=== PATIENT | female | born 1955 | race Two or more races ===

== ENCOUNTER 2017-10-20 15:06 | Inpatient (IN) | payer OTHER ==
[~2017-10-20] VITALS: Ht 157.5 cm; Wt 85.7 kg
[~2017-10-20 15:06] MED LIST: CRUTCH4 USE; CYCL10 PO; DICL25ER PO; DICL75ER PO; FISH1000 PO; Glucophage1000 MG PO; Hydrocodone-Ap1 EA23 PO; LATA.005SO BOTHEYES; LOSA25 PO; LOSA50 PO; METF500 PO; Multiple Vitam1 EAC1 PO; NAPR500 PO; NAPR500ERA PO; Percocet 5-3251 EACH PO; SIMV40 PO; Simvastatin20 MG PO; Suphedrine30 MG PO; TRAM50 PO; Ultram50 MG PO
[2017-10-31] MEDS ORDERED: ASPI81CH PO (09:23)
[2017-10-31] MEDS ORDERED: DICL75ER PO (09:24)
[2017-10-31] MEDS ORDERED: ATOR40TA PO (09:24)
[2017-10-31] MEDS ORDERED: GLIP2.5ER PO (09:25)
[2017-10-31] MEDS ORDERED: Xalatan2.5 ML BOTHEYES (09:32)
[2017-10-31] MEDS ORDERED: LOSA25 PO (09:34)
[2017-10-31] MEDS ORDERED: METF500 PO (09:34)
[2017-11-17] MEDS ORDERED: Pseudoephedrine30 MG PO (23:16)
[2017-11-17] MEDS ORDERED: Mucinex600 MG PO (23:16)
[2017-11-20] MEDS ORDERED: ASPI81CH PO (11:24)
[2017-11-20] MEDS ORDERED: Xalatan2.5 ML (11:26)
[2017-11-20] MEDS ORDERED: DICL75ER PO (11:27)
[2017-11-20] MEDS ORDERED: ASPI325EC PO (13:18)
[2017-11-20] MEDS ORDERED: ACET500 PO (13:18)
[2017-11-20] MEDS ORDERED: OXYC5 PO (13:19)
[2017-11-21 05:21] LABS: BASOPHILS ABSOLUTE AUTO 0.02 K/mm3 (0.00-0.23); BASOPHILS PERCENT AUTO 0 % (0-2); EOSINOPHILS PERCENT AUTO 0 % (0-6); Hematocrit 31.5 % (33.0-51.0); Hemoglobin 10.3 g/dL (11.5-16.0); IMMATURE GRAN ABSOLUTE AUTO 0.07 K/mm3 (0.00-0.10); IMMATURE GRAN PERCENT AUTO 1 % (0-1); LYMPHOCYTES ABSOLUTE AUTO 0.96 K/mm3 (0.84-5.20); LYMPHOCYTES PERCENT AUTO 7 % (21-46); MONOCYTES ABSOLUTE AUTO 0.41 K/mm3 (0.16-1.47); MONOCYTES PERCENT AUTO 3 % (4-13); Mean Corpuscular HGB 28.9 pg (26.0-34.0); Mean Corpuscular HGB Conc 32.7 g/dL (31.5-36.5); Mean Corpuscular Volume 89 fL (80-100); Mean Platelet Volume 10.1 fL (9.1-12.4); NEUTROPHILS ABSOLUTE AUTO 11.57 K/mm3 (1.96-9.15); NEUTROPHILS PERCENT AUTO 89 % (41-73); Platelet Count 226 K/mm3 (150-400); RDW Coefficient Variation 13.1 % (11.7-14.2); RDW Standard Deviation 42.6 fL (35.1-46.3); Red Blood Cell Count 3.56 M/mm3 (3.80-5.20); White Blood Cell Count 13.03 K/mm3 (4.00-11.30)
[2017-11-21 06:05] LABS: Anion Gap 12 mmol/L (6-16); Blood Urea Nitrogen 19 mg/dL (8-24); CO2, Blood 22 mmol/L (21-32); Calcium, Blood 8.1 mg/dL (8.5-10.1); Chloride, Blood 103 mmol/L (98-108); Creatinine, Blood 0.68 mg/dL (0.40-1.00); Glomerular Filtration Rate >60 (60-); Glucose, Blood 268 mg/dL (70-99); Magnesium, Blood 1.8 mg/dL (1.6-2.4); Potassium, Blood 4.3 mmol/L (3.5-5.5); Sodium, Blood 137 mmol/L (136-145)
== END 2017-11-21 16:42 | disposition home or self-care (01) | DRG 470 ==
LOC: SURS 11-20 11:03 → PRE IP 11-20 13:30 → SURS 11-20 15:22
PROVIDERS: Orthopaedic Surgery
PROC: 0SRC0J9 Replacement of Right Knee Joint with Synthetic Substitute, Cemented, Open Approach (ICD-10-PCS; principal; 2017-11-20 13:30)
DX: M17.11 Unilateral primary osteoarthritis, right knee (principal); E11.9 Type 2 diabetes mellitus without complications; E66.9 Obesity, unspecified; Z68.34 Body mass index [BMI] 34.0-34.9, adult; Z79.82 Long term (current) use of aspirin; Z79.84 Long term (current) use of oral hypoglycemic drugs; Z79.899 Other long term (current) drug therapy; Z88.8 Allergy status to other drugs, medicaments and biological substances; Z91.018 Allergy to other foods
CPT/HCPCS: 36415; 73560-RT; 80048; 82947; 83735; 85025; 88300; 97110; 97116; 97162; 97530; C1713; C1776; G8978; G8979; J0171; J0690; J0735; J1100; J1170; J1815; J1885; J2250; J2405; J2765; J2795; J3010; J7120

== ENCOUNTER 2017-11-08 09:01 | Day surgery (SDC) | payer OTHER ==
[~2017-11-08] VITALS: Ht 154.9 cm; Wt 91.6 kg
[~2017-11-08 09:01] MED LIST changes: +ASPI81CH PO; +ATOR40TA PO; +GLIP2.5ER PO; +Xalatan2.5 ML BOTHEYES
== END 2017-11-08 22:59 | disposition home or self-care (01) ==
LOC: ORSCMMR 09:01
PROVIDERS: Internal Medicine Gastroenterology
PROC: 0DBN8ZX Excision of Sigmoid Colon, Via Natural or Artificial Opening Endoscopic, Diagnostic (ICD-10-PCS; principal; 2017-11-08 10:00)
DX: Z12.11 Encounter for screening for malignant neoplasm of colon (principal); K63.5 Polyp of colon; K64.4 Residual hemorrhoidal skin tags; Z86.010 Personal history of colon polyps; Z80.0 Family history of malignant neoplasm of digestive organs; E11.9 Type 2 diabetes mellitus without complications; I10 Essential (primary) hypertension; E78.00 Pure hypercholesterolemia, unspecified; Z79.84 Long term (current) use of oral hypoglycemic drugs; Z79.899 Other long term (current) drug therapy
CPT/HCPCS: 82947; 88305; J7120

== ENCOUNTER 2017-11-17 20:49 | Emergency (ER) | payer OTHER ==
[~2017-11-17] VITALS: Ht 154.9 cm; Wt 83.9 kg
[2017-11-17] MEDS ORDERED: Mucinex600 MG PO (23:16)
[2017-11-17] MEDS ORDERED: Pseudoephedrine30 MG PO (23:16)
== END 2017-11-17 23:25 | disposition home or self-care (01) ==
LOC: ER 20:49
DX: J06.9 Acute upper respiratory infection, unspecified (principal); B34.9 Viral infection, unspecified; I10 Essential (primary) hypertension; E11.9 Type 2 diabetes mellitus without complications; E78.00 Pure hypercholesterolemia, unspecified; Z88.5 Allergy status to narcotic agent; Z88.8 Allergy status to other drugs, medicaments and biological substances; Z79.899 Other long term (current) drug therapy; Z79.84 Long term (current) use of oral hypoglycemic drugs; Z90.710 Acquired absence of both cervix and uterus
CPT/HCPCS: 87081; 87430; 99283

== ENCOUNTER 2018-02-15 15:04 | Emergency (ER) | payer OTHER ==
[~2018-02-15] VITALS: Ht 154.9 cm; Wt 86.2 kg
[~2018-02-15 15:04] MED LIST changes: +ACET500 PO; +ASPI325EC PO; +Mucinex600 MG PO; +OXYC5 PO; +Pseudoephedrine30 MG PO; +Xalatan2.5 ML
[2018-02-15] MEDS ORDERED: Aspir 8181 MG PO (15:28)
[2018-02-15 15:44] LABS: BASOPHILS ABSOLUTE AUTO 0.04 K/mm3 (0.00-0.23); BASOPHILS PERCENT AUTO 1 % (0-2); EOSINOPHILS ABSOLUTE AUTO 0.14 K/mm3 (0.00-0.68); EOSINOPHILS PERCENT AUTO 2 % (0-6); Hematocrit 39.9 % (33.0-51.0); IMMATURE GRAN ABSOLUTE AUTO 0.01 K/mm3 (0.00-0.10); IMMATURE GRAN PERCENT AUTO 0 % (0-1); LYMPHOCYTES PERCENT AUTO 32 % (21-46); MONOCYTES PERCENT AUTO 6 % (4-13); Mean Corpuscular HGB 28.4 pg (26.0-34.0); Mean Corpuscular HGB Conc 32.6 g/dL (31.5-36.5); Mean Corpuscular Volume 87 fL (80-100); Mean Platelet Volume 10.1 fL (9.1-12.4); NEUTROPHILS ABSOLUTE AUTO 5.13 K/mm3 (1.96-9.15); NEUTROPHILS PERCENT AUTO 60 % (41-73); Platelet Count 251 K/mm3 (150-400); RDW Standard Deviation 41.5 fL (35.1-46.3); Red Blood Cell Count 4.58 M/mm3 (3.80-5.20); White Blood Cell Count 8.52 K/mm3 (4.00-11.30)
[2018-02-15 15:58] LABS: Alanine Aminotransfer (ALT/SGP 27 U/L (12-78); Albumin, Blood 3.9 g/dL (3.4-5.0); Albumin/Globulin Ratio 1.1 (0.8-1.8); Alk Phos 134 U/L (50-136); Anion Gap 9 mmol/L (6-16); Aspartate Aminotrans (AST/SGOT 14 U/L (12-37); Bilirubin, Total 0.3 mg/dL (0.1-1.0); Blood Urea Nitrogen 14 mg/dL (8-24); Bun/Creatinine Ratio 25.1 (12.0-20.0); CO2, Blood 27 mmol/L (21-32); Calcium, Blood 8.6 mg/dL (8.5-10.1); Chloride, Blood 102 mmol/L (98-108); Creatinine, Blood 0.56 mg/dL (0.40-1.00); Globulin, Blood 3.7 g/dL (2.2-4.0); Glomerular Filtration Rate >60 (60-); Glucose, Blood 279 mg/dL (70-99); Potassium, Blood 3.9 mmol/L (3.5-5.5); Sodium, Blood 138 mmol/L (136-145); Total Protein, Blood 7.6 g/dL (6.4-8.2); Troponin I <0.015 ng/mL (0.000-0.040)
== END 2018-02-15 16:52 | disposition home or self-care (01) ==
LOC: ER 15:04
PROVIDERS: Nurse Practitioner Family
DX: R00.2 Palpitations (principal); Z88.8 Allergy status to other drugs, medicaments and biological substances; Z91.018 Allergy to other foods; Z79.899 Other long term (current) drug therapy; Z79.82 Long term (current) use of aspirin; Z79.84 Long term (current) use of oral hypoglycemic drugs; I10 Essential (primary) hypertension; E11.9 Type 2 diabetes mellitus without complications; E78.00 Pure hypercholesterolemia, unspecified
CPT/HCPCS: 36415; 71046; 80053; 84484; 85025; 93005; 93010

== ENCOUNTER 2018-07-10 12:34 | Emergency (ER) | payer OTHER ==
[~2018-07-10] VITALS: Ht 157.5 cm; Wt 88.5 kg
[~2018-07-10 12:34] MED LIST changes: +Aspir 8181 MG PO
== END 2018-07-10 15:22 | disposition home or self-care (01) ==
LOC: ER 12:34
DX: M79.89 Other specified soft tissue disorders (principal); Z88.8 Allergy status to other drugs, medicaments and biological substances; Z91.018 Allergy to other foods; Z79.899 Other long term (current) drug therapy; Z79.82 Long term (current) use of aspirin; Z79.84 Long term (current) use of oral hypoglycemic drugs; I10 Essential (primary) hypertension
CPT/HCPCS: 93971; 99283-25

== ENCOUNTER 2019-04-25 13:27 | Emergency (ER) | payer OTHER ==
[~2019-04-25] VITALS: Ht 157.5 cm; Wt 88.5 kg
[~2019-04-25 13:27] MED LIST changes: +ALBU90OI INH; +LOSARTAN POTAS100 MG PO; +Mobic15 MG PO; +TRAZ50 PO
[2019-04-25 14:32] LABS: BASOPHILS ABSOLUTE AUTO 0.06 K/mm3 (0.00-0.23); BASOPHILS PERCENT AUTO 1 % (0-2); EOSINOPHILS PERCENT AUTO 3 % (0-6); Hematocrit 43.9 % (33.0-51.0); Hemoglobin 14.6 g/dL (11.5-16.0); IMMATURE GRAN ABSOLUTE AUTO 0.01 K/mm3 (0.00-0.10); IMMATURE GRAN PERCENT AUTO 0 % (0-1); LYMPHOCYTES ABSOLUTE AUTO 2.48 K/mm3 (0.84-5.20); LYMPHOCYTES PERCENT AUTO 37 % (21-46); MONOCYTES ABSOLUTE AUTO 0.41 K/mm3 (0.16-1.47); MONOCYTES PERCENT AUTO 6 % (4-13); Mean Corpuscular HGB 28.7 pg (26.0-34.0); Mean Corpuscular HGB Conc 33.3 g/dL (31.5-36.5); Mean Corpuscular Volume 86 fL (80-100); NEUTROPHILS ABSOLUTE AUTO 3.61 K/mm3 (1.96-9.15); NEUTROPHILS PERCENT AUTO 53 % (41-73); Platelet Count 229 K/mm3 (150-400); RDW Coefficient Variation 13.2 % (11.7-14.2); RDW Standard Deviation 41.8 fL (35.1-46.3); Red Blood Cell Count 5.08 M/mm3 (3.80-5.20); White Blood Cell Count 6.77 K/mm3 (4.00-11.30)
[2019-04-25 14:56] LABS: Alanine Aminotransfer (ALT/SGP 27 U/L (12-78); Albumin, Blood 4.2 g/dL (3.4-5.0); Albumin/Globulin Ratio 1.2 (0.8-1.8); Alk Phos 138 U/L (50-136); Anion Gap 7 mmol/L (6-16); Aspartate Aminotrans (AST/SGOT 16 U/L (12-37); Bilirubin, Total 0.6 mg/dL (0.1-1.0); Blood Urea Nitrogen 11 mg/dL (8-24); Bun/Creatinine Ratio 19.9 (12.0-20.0); CO2, Blood 26 mmol/L (21-32); Calcium, Blood 9.3 mg/dL (8.5-10.1); Chloride, Blood 104 mmol/L (98-108); Creatinine, Blood 0.55 mg/dL (0.40-1.00); Globulin, Blood 3.6 g/dL (2.2-4.0); Glomerular Filtration Rate >60 (60-); Glucose, Blood 188 mg/dL (70-99); Potassium, Blood 4.1 mmol/L (3.5-5.5); Sodium, Blood 137 mmol/L (136-145); Total Protein, Blood 7.8 g/dL (6.4-8.2)
== END 2019-04-25 17:17 | disposition home or self-care (01) ==
LOC: ER 13:27
PROVIDERS: Physician Assistant
DX: R51 Headache (principal); Z88.8 Allergy status to other drugs, medicaments and biological substances; Z91.018 Allergy to other foods; Z79.899 Other long term (current) drug therapy; Z79.84 Long term (current) use of oral hypoglycemic drugs; I10 Essential (primary) hypertension
CPT/HCPCS: 36415; 70450; 80053; 85025; 96374; 99284-25; J1170

== ENCOUNTER 2019-07-18 08:29 | Day surgery (SDC) | payer OTHER ==
[~2019-07-18] VITALS: Ht 157.5 cm; Wt 90.3 kg
[2019-07-18] MEDS ORDERED: ALBU90OI (09:15)
== END 2019-07-18 11:48 | disposition home or self-care (01) ==
LOC: ORSCSDS 08:29
PROVIDERS: Orthopaedic Surgery
PROC: 0JBN0ZZ Excision of Right Lower Leg Subcutaneous Tissue and Fascia, Open Approach (ICD-10-PCS; principal; 2019-07-18 09:50)
DX: D17.23 Benign lipomatous neoplasm of skin and subcutaneous tissue of right leg (principal); I10 Essential (primary) hypertension; E11.9 Type 2 diabetes mellitus without complications; J45.909 Unspecified asthma, uncomplicated; E66.01 Morbid (severe) obesity due to excess calories; Z68.36 Body mass index [BMI] 36.0-36.9, adult; Z79.899 Other long term (current) drug therapy
CPT/HCPCS: 82947; J0171; J0690; J1885; J2250; J2405; J2704; J2765; J3010; J7120

== ENCOUNTER → 2020-01-21 | Outpatient (CLI) | payer OTHER ==
[~2020-01-21] MED LIST changes: +ALBU90OI
== END | disposition home or self-care (01) ==
LOC: LAB EV 13:05 → LAB SHORT 13:05
DX: J02.9 Acute pharyngitis, unspecified (principal)
CPT/HCPCS: 87081

== ENCOUNTER 2020-01-23 10:55 | Emergency (ER) | payer OTHER ==
[~2020-01-23] VITALS: Ht 157.5 cm; Wt 90.7 kg
[2020-01-23 11:52] LABS: BASOPHILS ABSOLUTE AUTO 0.05 K/mm3 (0.00-0.23); BASOPHILS PERCENT AUTO 1 % (0-2); EOSINOPHILS ABSOLUTE AUTO 0.21 K/mm3 (0.00-0.68); EOSINOPHILS PERCENT AUTO 3 % (0-6); Hematocrit 41.9 % (33.0-51.0); Hemoglobin 13.6 g/dL (11.5-16.0); IMMATURE GRAN ABSOLUTE AUTO 0.01 K/mm3 (0.00-0.10); IMMATURE GRAN PERCENT AUTO 0 % (0-1); LYMPHOCYTES ABSOLUTE AUTO 2.35 K/mm3 (0.84-5.20); LYMPHOCYTES PERCENT AUTO 32 % (21-46); MONOCYTES ABSOLUTE AUTO 0.55 K/mm3 (0.16-1.47); MONOCYTES PERCENT AUTO 8 % (4-13); Mean Corpuscular HGB 29.1 pg (26.0-34.0); Mean Corpuscular HGB Conc 32.5 g/dL (31.5-36.5); Mean Corpuscular Volume 90 fL (80-100); NEUTROPHILS ABSOLUTE AUTO 4.09 K/mm3 (1.96-9.15); NEUTROPHILS PERCENT AUTO 56 % (41-73); Platelet Count 268 K/mm3 (150-400); RDW Coefficient Variation 13.7 % (11.7-14.2); RDW Standard Deviation 44.9 fL (35.1-46.3); Red Blood Cell Count 4.68 M/mm3 (3.80-5.20); White Blood Cell Count 7.26 K/mm3 (4.00-11.30)
[2020-01-23 12:02] LABS: Anion Gap 7 mmol/L (6-16); Blood Urea Nitrogen 12 mg/dL (8-24); CO2, Blood 27 mmol/L (21-32); Calcium, Blood 9.2 mg/dL (8.5-10.1); Chloride, Blood 105 mmol/L (98-108); Creatinine, Blood 0.67 mg/dL (0.40-1.00); Glomerular Filtration Rate >60 (60-); Glucose, Blood 142 mg/dL (70-99); Potassium, Blood 4.3 mmol/L (3.5-5.5); Sodium, Blood 139 mmol/L (136-145); Troponin I <0.015 ng/mL (0.000-0.040)
== END 2020-01-23 13:55 | disposition home or self-care (01) ==
LOC: ER 10:55
PROVIDERS: Emergency Medicine
DX: J06.9 Acute upper respiratory infection, unspecified (principal); R07.89 Other chest pain; I10 Essential (primary) hypertension; Z79.899 Other long term (current) drug therapy
CPT/HCPCS: 36415; 71045; 80048; 84484; 85025; 87081; 87430; 93005; 93010; 96360; 96361; 99285-25; J7030

== ENCOUNTER 2020-05-24 17:13 | Emergency (ER) | payer OTHER ==
[~2020-05-24] VITALS: Ht 154.9 cm; Wt 86.2 kg
[~2020-05-24 17:13] MED LIST changes: -ALBU90OI
[2020-05-24 18:11] LABS: BASOPHILS ABSOLUTE AUTO 0.06 K/mm3 (0.00-0.23); BASOPHILS PERCENT AUTO 1 % (0-2); EOSINOPHILS PERCENT AUTO 2 % (0-6); Hematocrit 41.4 % (33.0-51.0); Hemoglobin 13.1 g/dL (11.5-16.0); IMMATURE GRAN ABSOLUTE AUTO 0.02 K/mm3 (0.00-0.10); IMMATURE GRAN PERCENT AUTO 0 % (0-1); LYMPHOCYTES PERCENT AUTO 29 % (21-46); MONOCYTES PERCENT AUTO 7 % (4-13); Mean Corpuscular HGB 28.8 pg (26.0-34.0); Mean Corpuscular HGB Conc 31.6 g/dL (31.5-36.5); Mean Corpuscular Volume 91 fL (80-100); NEUTROPHILS ABSOLUTE AUTO 5.98 K/mm3 (1.96-9.15); NEUTROPHILS PERCENT AUTO 61 % (41-73); Platelet Count 267 K/mm3 (150-400); RDW Coefficient Variation 13.6 % (11.7-14.2); RDW Standard Deviation 46.1 fL (35.1-46.3); Red Blood Cell Count 4.55 M/mm3 (3.80-5.20); White Blood Cell Count 9.86 K/mm3 (4.00-11.30)
[2020-05-24 18:27] LABS: Alanine Aminotransfer (ALT/SGP 26 U/L (12-78); Albumin/Globulin Ratio 1.1 (0.8-1.8); Alk Phos 108 U/L (50-136); Anion Gap 7 mmol/L (6-16); Aspartate Aminotrans (AST/SGOT 15 U/L (12-37); Bilirubin, Total 0.3 mg/dL (0.1-1.0); Blood Urea Nitrogen 22 mg/dL (8-24); CO2, Blood 26 mmol/L (21-32); Calcium, Blood 9.2 mg/dL (8.5-10.1); Chloride, Blood 109 mmol/L (98-108); Creatinine, Blood 0.85 mg/dL (0.40-1.00); Globulin, Blood 3.8 g/dL (2.2-4.0); Glomerular Filtration Rate >60 (60-); Glucose, Blood 133 mg/dL (70-99); Potassium, Blood 3.6 mmol/L (3.5-5.5); Sodium, Blood 142 mmol/L (136-145); Total Protein, Blood 7.8 g/dL (6.4-8.2)
[2020-05-24] MEDS ORDERED: TIZA4 PO (21:28)
[2020-06-15] MEDS ORDERED: PIOG30 PO (09:33)
[2020-06-15] MEDS ORDERED: DULO60 PO (09:33)
[2020-06-15] MEDS ORDERED: TRAM50 PO (09:34)
[2020-06-15] MEDS ORDERED: NORT25 PO (09:35)
[2020-06-15] MEDS ORDERED: AMLO5 PO (09:35)
[2020-06-15] MEDS ORDERED: FAMO40 PO (09:35)
[2020-06-15] MEDS ORDERED: VITAMIN D2 PO (09:36)
[2020-06-15] MEDS ORDERED: ROSU10TA PO (09:36)
== END 2020-05-24 23:31 | disposition home or self-care (01) ==
LOC: ER 17:13
PROVIDERS: Physician Assistant
DX: S09.90XA Unspecified injury of head, initial encounter (principal); H53.8 Other visual disturbances; Z88.8 Allergy status to other drugs, medicaments and biological substances; Z91.018 Allergy to other foods; Z79.84 Long term (current) use of oral hypoglycemic drugs; I10 Essential (primary) hypertension; W19.XXXA Unspecified fall, initial encounter
CPT/HCPCS: 36415; 70450; 80053; 85025; 93005; 93010; 99284-25

== ENCOUNTER 2020-06-29 09:07 | Day surgery (SDC) | payer OTHER ==
[~2020-06-29] VITALS: Ht 154.9 cm; Wt 94.4 kg
[~2020-06-29 09:07] MED LIST changes: +AMLO5 PO; +DULO60 PO; +FAMO40 PO; +NORT25 PO; +PIOG30 PO; +ROSU10TA PO; +TIZA4 PO; +VITAMIN D2 PO
--- NOTE | 2020-06-29 18:21 | NUR ---
SHIFT SUMMARY WAS ABLE TO WORK W/ THERAPY. EATING/DRINKING/VOIDING. PAIN REASONABLY MANAGED. WEANED OFF O2. BLOOD SUGAR HIGH; REQUIRING COVERAGE. PT WAS SURPRISED BY HIGH BLOOD SUGAR BUT THEN ASKED FOR A PUDDING AND ICE CREAM. WAS OFFERED A SUGAR FREE ONE AND DECLINED. THEN AGAIN ASKED FOR A REG PUDDING. WAS GIVEN AND EDUCATED ON HIGH SUGARS AND INCREASED RISK OF INFECTION.
[2020-06-30 04:22] LABS: BASOPHILS ABSOLUTE AUTO 0.02 K/mm3 (0.00-0.23); BASOPHILS PERCENT AUTO 0 % (0-2); EOSINOPHILS PERCENT AUTO 0 % (0-6); Hematocrit 32.3 % (33.0-51.0); Hemoglobin 10.4 g/dL (11.5-16.0); IMMATURE GRAN ABSOLUTE AUTO 0.06 K/mm3 (0.00-0.10); IMMATURE GRAN PERCENT AUTO 0 % (0-1); LYMPHOCYTES ABSOLUTE AUTO 1.24 K/mm3 (0.84-5.20); LYMPHOCYTES PERCENT AUTO 8 % (21-46); MONOCYTES ABSOLUTE AUTO 0.99 K/mm3 (0.16-1.47); MONOCYTES PERCENT AUTO 6 % (4-13); Mean Corpuscular HGB 29.7 pg (26.0-34.0); Mean Corpuscular HGB Conc 32.2 g/dL (31.5-36.5); Mean Corpuscular Volume 92 fL (80-100); Mean Platelet Volume 10.1 fL (9.1-12.4); NEUTROPHILS ABSOLUTE AUTO 13.67 K/mm3 (1.96-9.15); NEUTROPHILS PERCENT AUTO 86 % (41-73); Platelet Count 210 K/mm3 (150-400); RDW Coefficient Variation 13.9 % (11.7-14.2); RDW Standard Deviation 47.5 fL (35.1-46.3); White Blood Cell Count 15.98 K/mm3 (4.00-11.30)
--- NOTE | 2020-06-30 04:27 | NUR ---
SHIFT SUMMARY L TKA, A/O, VSS, AMBULATES WELL W/ 1 PERSON STANDBY ASSIST, TOLERATING PO, VOIDING WELL, PAIN CONTROLLED PER EMAR. USES CALL LIGHT APPROPRIATELY, CALL LIGHT & PERSONAL EFFECTS IN REACH. WILL REPORT TO ONCOMING DAY RN.
[2020-06-30 04:44] LABS: Anion Gap 6 mmol/L (6-16); Blood Urea Nitrogen 14 mg/dL (8-24); Bun/Creatinine Ratio 25.7 (12.0-20.0); CO2, Blood 27 mmol/L (21-32); Calcium, Blood 8.5 mg/dL (8.5-10.1); Chloride, Blood 105 mmol/L (98-108); Creatinine, Blood 0.54 mg/dL (0.40-1.00); Glomerular Filtration Rate >60 (60-); Glucose, Blood 153 mg/dL (70-99); Magnesium, Blood 2.2 mg/dL (1.6-2.4); Potassium, Blood 4.1 mmol/L (3.5-5.5); Sodium, Blood 138 mmol/L (136-145)
[2020-06-30] MEDS ORDERED: ACET500 PO (09:24)
[2020-06-30] MEDS ORDERED: ASPI81CH PO (09:28)
[2020-06-30] MEDS ORDERED: OXYC5 PO (09:29)
--- NOTE | 2020-06-30 11:00 | NUR ---
DISCHARGE CLEARED THERAPY, PAIN WELL MANAGED, EATING/DRINKING/VOIDING. SPOUSE AT SIDE. SCRIPT, DRSGS, AND POLAR PACK GIVEN. ESCORTED OUT VIA W/C.
--- NOTE | 2020-06-30 13:43 | NUR ---
06/30/20 1343 Lisset Elizabeth VERIFICATIONS: EDIT CHART.
== END 2020-06-30 10:54 | disposition home or self-care (01) ==
LOC: ORSCMMR 09:07 → ORD 10:30 → SURS 13:50 → ORSCMMR 06-30 10:54
PROVIDERS: Orthopaedic Surgery
PROC: 0SRD0J9 Replacement of Left Knee Joint with Synthetic Substitute, Cemented, Open Approach (ICD-10-PCS; principal; 2020-06-29 10:30)
PROC: 8E0Y0CZ Robotic Assisted Procedure of Lower Extremity, Open Approach (ICD-10-PCS; principal; 2020-06-29 10:30)
DX: M17.12 Unilateral primary osteoarthritis, left knee (principal); I10 Essential (primary) hypertension; E11.9 Type 2 diabetes mellitus without complications; J45.909 Unspecified asthma, uncomplicated; F32.9 Major depressive disorder, single episode, unspecified; E66.01 Morbid (severe) obesity due to excess calories; Z68.39 Body mass index [BMI] 39.0-39.9, adult; Z79.899 Other long term (current) drug therapy; Z79.84 Long term (current) use of oral hypoglycemic drugs
CPT/HCPCS: 27447; S2900; 36415; 73560-LT; 80048; 82947; 83735; 85025; 88300; 97110; 97116; 97162; A9270-GY; C1713; C1776; J0171; J0690; J0735; J1100; J1815; J1885; J2250; J2405; J2704; J2765; J2795; J3010; J7120

== ENCOUNTER → 2020-11-26 | Outpatient (CLI) | payer OTHER ==
[2020-11-26 15:49] LABS: BASOPHILS ABSOLUTE AUTO 0.06 K/mm3 (0.00-0.23); BASOPHILS PERCENT AUTO 1 % (0-2); EOSINOPHILS ABSOLUTE AUTO 0.26 K/mm3 (0.00-0.68); EOSINOPHILS PERCENT AUTO 3 % (0-6); Hematocrit 40.1 % (33.0-51.0); Hemoglobin 13.3 g/dL (11.5-16.0); IMMATURE GRAN ABSOLUTE AUTO 0.02 K/mm3 (0.00-0.10); IMMATURE GRAN PERCENT AUTO 0 % (0-1); LYMPHOCYTES ABSOLUTE AUTO 2.53 K/mm3 (0.84-5.20); LYMPHOCYTES PERCENT AUTO 31 % (21-46); MONOCYTES ABSOLUTE AUTO 0.55 K/mm3 (0.16-1.47); MONOCYTES PERCENT AUTO 7 % (4-13); Mean Corpuscular HGB 28.9 pg (26.0-34.0); Mean Corpuscular HGB Conc 33.2 g/dL (31.5-36.5); Mean Corpuscular Volume 87 fL (80-100); Mean Platelet Volume 9.8 fL (9.1-12.4); NEUTROPHILS ABSOLUTE AUTO 4.72 K/mm3 (1.96-9.15); NEUTROPHILS PERCENT AUTO 58 % (41-73); Platelet Count 276 K/mm3 (150-400); RDW Coefficient Variation 14.2 % (11.7-14.2); RDW Standard Deviation 44.8 fL (35.1-46.3); White Blood Cell Count 8.14 K/mm3 (4.00-11.30)
[2020-11-26 16:06] LABS: Alanine Aminotransfer (ALT/SGP 39 U/L (12-78); Albumin, Blood 3.9 g/dL (3.4-5.0); Alk Phos 119 U/L (40-126); Anion Gap 8 mmol/L (6-16); Aspartate Aminotrans (AST/SGOT 28 U/L (12-37); Bilirubin, Total 0.5 mg/dL (0.1-1.0); Blood Urea Nitrogen 10 mg/dL (8-24); Bun/Creatinine Ratio 10.3 (12.0-20.0); CO2, Blood 28 mmol/L (21-32); Calcium, Blood 9.3 mg/dL (8.5-10.1); Chloride, Blood 103 mmol/L (98-108); Creatinine, Blood 0.97 mg/dL (0.40-1.00); Globulin, Blood 3.9 g/dL (2.2-4.0); Glomerular Filtration Rate 58 (60-); Glucose, Blood 153 mg/dL (70-99); Potassium, Blood 3.6 mmol/L (3.5-5.5); Sodium, Blood 139 mmol/L (136-145); Thyroid Stimulating Hormone 1.374 uIU/mL (0.360-4.800); Total Protein, Blood 7.8 g/dL (6.4-8.2); Troponin I <0.017 ng/mL (0.000-0.040)
== END | disposition home or self-care (01) ==
LOC: LAB EV 15:43 → LAB SHORT 15:43
PROVIDERS: Physician Assistant
DX: R07.9 Chest pain, unspecified (principal)
CPT/HCPCS: 80053; 83880; 84443; 84484; 85025

== ENCOUNTER → 2021-05-16 | Outpatient (CLI) | payer OTHER ==
[2021-05-16 11:10] LABS: BASOPHILS ABSOLUTE AUTO 0.04 K/mm3 (0.00-0.23); BASOPHILS PERCENT AUTO 0 % (0-2); EOSINOPHILS ABSOLUTE AUTO 0.03 K/mm3 (0.00-0.68); EOSINOPHILS PERCENT AUTO 0 % (0-6); Hematocrit 41.3 % (33.0-51.0); Hemoglobin 13.9 g/dL (11.5-16.0); IMMATURE GRAN ABSOLUTE AUTO 0.03 K/mm3 (0.00-0.10); IMMATURE GRAN PERCENT AUTO 0 % (0-1); LYMPHOCYTES ABSOLUTE AUTO 0.96 K/mm3 (0.84-5.20); LYMPHOCYTES PERCENT AUTO 8 % (21-46); MONOCYTES ABSOLUTE AUTO 0.49 K/mm3 (0.16-1.47); MONOCYTES PERCENT AUTO 4 % (4-13); Mean Corpuscular HGB 28.8 pg (26.0-34.0); Mean Corpuscular HGB Conc 33.7 g/dL (31.5-36.5); Mean Corpuscular Volume 86 fL (80-100); Mean Platelet Volume 10.1 fL (9.1-12.4); NEUTROPHILS PERCENT AUTO 86 % (41-73); Platelet Count 232 K/mm3 (150-400); RDW Standard Deviation 40.2 fL (35.1-46.3); Red Blood Cell Count 4.82 M/mm3 (3.80-5.20); White Blood Cell Count 11.45 K/mm3 (4.00-11.30)
[2021-05-16 11:25] LABS: Albumin/Globulin Ratio 1.2 (0.8-1.8); Bilirubin, Total 0.6 mg/dL (0.1-1.0); Calcium, Blood 8.6 mg/dL (8.5-10.1); Creatinine, Blood 1.25 mg/dL (0.40-1.00); Globulin, Blood 3.4 g/dL (2.2-4.0); Potassium, Blood 4.4 mmol/L (3.5-5.5); Total Protein, Blood 7.4 g/dL (6.4-8.2)
== END | disposition home or self-care (01) ==
LOC: LAB 11:00 → LAB SHORT 11:00
PROVIDERS: Physician Assistant
DX: R10.9 Unspecified abdominal pain (principal)
CPT/HCPCS: 80053; 83690; 85025

== ENCOUNTER 2021-05-31 19:15 | Observation (INO) | payer OTHER ==
[~2021-05-31] VITALS: Ht 154.9 cm; Wt 97.2 kg
[~2021-05-31 19:15] MED LIST changes: -ALEN70 PO; -ERGO50000 PO; -METO50ER PO; -Norco 5-325 Ta1 EACH PO
[2021-05-31 20:41] LABS: BASOPHILS ABSOLUTE AUTO 0.09 K/mm3 (0.00-0.23); BASOPHILS PERCENT AUTO 1 % (0-2); EOSINOPHILS ABSOLUTE AUTO 0.48 K/mm3 (0.00-0.68); EOSINOPHILS PERCENT AUTO 5 % (0-6); Hematocrit 42.3 % (33.0-51.0); Hemoglobin 13.8 g/dL (11.5-16.0); IMMATURE GRAN ABSOLUTE AUTO 0.03 K/mm3 (0.00-0.10); IMMATURE GRAN PERCENT AUTO 0 % (0-1); LYMPHOCYTES ABSOLUTE AUTO 3.14 K/mm3 (0.84-5.20); LYMPHOCYTES PERCENT AUTO 31 % (21-46); MONOCYTES ABSOLUTE AUTO 0.63 K/mm3 (0.16-1.47); MONOCYTES PERCENT AUTO 6 % (4-13); Mean Corpuscular HGB 28.6 pg (26.0-34.0); Mean Corpuscular HGB Conc 32.6 g/dL (31.5-36.5); Mean Corpuscular Volume 88 fL (80-100); Mean Platelet Volume 9.9 fL (9.1-12.4); NEUTROPHILS ABSOLUTE AUTO 5.87 K/mm3 (1.96-9.15); NEUTROPHILS PERCENT AUTO 57 % (41-73); Platelet Count 283 K/mm3 (150-400); RDW Coefficient Variation 13.1 % (11.7-14.2); RDW Standard Deviation 41.8 fL (35.1-46.3); Red Blood Cell Count 4.83 M/mm3 (3.80-5.20); White Blood Cell Count 10.24 K/mm3 (4.00-11.30)
[2021-05-31 21:03] LABS: Alanine Aminotransfer (ALT/SGP 25 U/L (12-78); Alk Phos 125 U/L (50-136); Anion Gap 6 mmol/L (6-16); Aspartate Aminotrans (AST/SGOT 13 U/L (12-37); Bilirubin, Total 0.3 mg/dL (0.1-1.0); Blood Urea Nitrogen 19 mg/dL (8-24); Bun/Creatinine Ratio 25.1 (12.0-20.0); CO2, Blood 27 mmol/L (21-32); Calcium, Blood 9.7 mg/dL (8.5-10.1); Chloride, Blood 104 mmol/L (98-108); Creatinine, Blood 0.76 mg/dL (0.40-1.00); Globulin, Blood 4.2 g/dL (2.2-4.0); Glomerular Filtration Rate >60 (60-); Glucose, Blood 237 mg/dL (70-99); Potassium, Blood 4.5 mmol/L (3.5-5.5); Sodium, Blood 137 mmol/L (136-145); Total Protein, Blood 8.2 g/dL (6.4-8.2)
[2021-06-01] MEDS ORDERED: METO50ER PO ×2 (00:20)
[2021-06-01] MEDS ORDERED: LATA.005SO BOTHEYES ×2 (00:20)
[2021-06-01] MEDS ORDERED: ERGO50000 PO ×2 (00:21)
[2021-06-01] MEDS ORDERED: ALEN70 PO ×2 (00:21)
--- NOTE | 2021-06-01 02:56 | NUR ---
PT NEW ADMIT FROM ER FOR DELICIA. PT A/O, VSS. PT REP RUQ ABD PAIN W/NAUSEA, DENIES EMESIS. PT REP PAIN CHIP, REP IS NERVOUS TO TAKE MEDS R/T ALLERGIC REACTION IN ER. PER REPORT, PT BECAME ITCHY AND SHAKY AFTER SHE WAS GIVEN MORPHINE AND ZOFRAN IN ER. PT STATES SYMPTOMS RESOLVED AFTER BENADRYL GIVEN. PT ORIENTED TO ROOM/CALL LIGHT AND NPO STATUS. DR MORENO UPDATED.
[2021-06-01 03:37] LABS: SARS-Cov-2 (COVID-19) PCR, MMC NEGATIVE (NEGATIVE)
--- NOTE | 2021-06-01 05:42 | NUR ---
PT VSS SINCE ARRIVING TO FLOOR. PT REP PAIN AND NAUSEA CHIP. PT NPO SINCE ARRIVING TO FLOOR FOR PLAN FOR SURGERY TODAY.
--- NOTE | 2021-06-01 10:44 | NUR ---
THE PATIENT WAS BROUGHT TO D/S FOR HER PROCEDURE. Ambulatory in [facility] warming gown applied. Surgical site prepped with 2% Chlorhexidine cloth wipe. History, Chart, Medications and Allergies reviewed before start of procedure.Lungs clear T/O to Auscultation. Patient confirms NPO status and agrees with scheduled surgery. Pre-Op teaching done. Pt verbalizes understanding. Patient States Post-Procedure ride home has been arranged.
--- NOTE | 2021-06-01 19:28 | NUR ---
SHIFT SUMMARY PATIENT ALERT AND ORIENTED. WENT FOR CHOLECYSTECTOMY WITH DR PEDERSON THIS SHIFT. RETURNED TO ROOM IN AFTERNOON. LAP SITES C/D/I. TOLERATING CLEARS, VOIDING WELL. ROUTINE FLUIDS AND ABX RUNNING. AMBULATES IN ROOM WITH SBA. PAIN CONTROLLED WITH PO PAIN MEDS. REPORT GIVEN TO AGENT TICKETING GATE RN.
--- NOTE | 2021-06-02 06:07 | NUR ---
POD 1 S/P LAP DELICIA. PT VSS T/O NIGHT. INCISIONS CDI. PT CHIP REG PO, NO N/V, REP +FLATUS. PT REP SHE IS VOIDING URINE W/O DIFFICULTY. PAIN MGD W/1 NORCO W/REP RELIEF. NO ADVERSE REACTIONS NOTED/REPORTED FROM MEDS GIVEN. PT UP IN ROOM W/SBA, CHIP WELL.
[2021-06-02] MEDS ORDERED: Norco 5-325 Ta1 EACH PO ×2 (08:04)
--- NOTE | 2021-06-02 10:13 | NUR ---
DISCHARGE PT EATING, DRINKING, VOIDING, & PASSING GAS. PAIN WELL CONTROLLED. AMBULATING EASILY. SCRIPT SENT W/ PT. ESCORTED OUT VIA W/C.
--- NOTE | 2021-06-03 10:44 | NUR ---
06/03/21 1044 Lisset Elizabeth VERIFICATIONS: EDIT CHART.
== END 2021-06-02 10:05 | disposition home or self-care (01) ==
LOC: ER 19:15 → SURS 19:16 → ER 06-01 00:28 → SURS 06-01 00:28
PROVIDERS: Physician Assistant; Surgery; ADMIT Surgery
PROC: 0FT44ZZ Resection of Gallbladder, Percutaneous Endoscopic Approach (ICD-10-PCS; principal; 2021-06-01 10:30)
DX: K80.10 Calculus of gallbladder with chronic cholecystitis without obstruction (principal); I10 Essential (primary) hypertension; G43.909 Migraine, unspecified, not intractable, without status migrainosus; E78.5 Hyperlipidemia, unspecified; E11.9 Type 2 diabetes mellitus without complications; Z79.84 Long term (current) use of oral hypoglycemic drugs; Z88.6 Allergy status to analgesic agent; Z88.5 Allergy status to narcotic agent; Z91.018 Allergy to other foods; Z96.653 Presence of artificial knee joint, bilateral; Z79.82 Long term (current) use of aspirin; Z20.822 Contact with and (suspected) exposure to COVID-19
CPT/HCPCS: 36415; 80053; 82947; 85025; 88304; 93005; 93010; 96361; 96365; 96366; 96367; 96375; 99284-25; A9270; G0378; J0295; J1200; J1885; J2250; J2270; J2405; J2543; J2704; J3010; J7030; J7120; U0004

== ENCOUNTER → 2021-05-31 | Outpatient (CLI) | payer OTHER ==
[~2021-05-31] MED LIST changes: +ALEN70 PO; +ERGO50000 PO; +METO50ER PO; +Norco 5-325 Ta1 EACH PO
[2021-05-31 14:35] LABS: BASOPHILS ABSOLUTE AUTO 0.06 K/mm3 (0.00-0.23); BASOPHILS PERCENT AUTO 1 % (0-2); EOSINOPHILS PERCENT AUTO 5 % (0-6); Hematocrit 42.1 % (33.0-51.0); Hemoglobin 13.9 g/dL (11.5-16.0); IMMATURE GRAN ABSOLUTE AUTO 0.03 K/mm3 (0.00-0.10); IMMATURE GRAN PERCENT AUTO 0 % (0-1); LYMPHOCYTES PERCENT AUTO 30 % (21-46); MONOCYTES ABSOLUTE AUTO 0.52 K/mm3 (0.16-1.47); MONOCYTES PERCENT AUTO 6 % (4-13); Mean Corpuscular HGB 28.8 pg (26.0-34.0); Mean Corpuscular Volume 87 fL (80-100); Mean Platelet Volume 9.9 fL (9.1-12.4); NEUTROPHILS ABSOLUTE AUTO 5.08 K/mm3 (1.96-9.15); NEUTROPHILS PERCENT AUTO 59 % (41-73); Platelet Count 283 K/mm3 (150-400); RDW Coefficient Variation 13.1 % (11.7-14.2); RDW Standard Deviation 41.3 fL (35.1-46.3); Red Blood Cell Count 4.83 M/mm3 (3.80-5.20); White Blood Cell Count 8.69 K/mm3 (4.00-11.30)
[2021-05-31 14:44] LABS: Albumin, Blood 3.9 g/dL (3.4-5.0); Bilirubin, Total 0.4 mg/dL (0.1-1.0); Bun/Creatinine Ratio 15.3 (12.0-20.0); Calcium, Blood 9.2 mg/dL (8.5-10.1); Creatinine, Blood 0.98 mg/dL (0.40-1.00); Globulin, Blood 3.9 g/dL (2.2-4.0); Potassium, Blood 4.4 mmol/L (3.5-5.5); Total Protein, Blood 7.8 g/dL (6.4-8.2)
== END | disposition home or self-care (01) ==
LOC: LAB SHORT 14:29 → LAB 14:29
PROVIDERS: Physician Assistant Medical
DX: R10.12 Left upper quadrant pain (principal)
CPT/HCPCS: 80053; 83690; 85025

== ENCOUNTER → 2022-02-22 | Outpatient (CLI) | payer OTHER ==
[~2022-02-22] MED LIST changes: +ALEN70 PO; +ERGO50000 PO; +METO50ER PO; +Norco 5-325 Ta1 EACH PO
== END | disposition home or self-care (01) ==
LOC: LAB SHORT 14:40 → LAB 14:40
DX: R31.9 Hematuria, unspecified (principal)
CPT/HCPCS: 87086

== ENCOUNTER → 2022-02-25 | Outpatient (CLI) | payer OTHER ==
[2022-03-02 18:09] LABS: COLOR Orange (.); SIZE 10x6 mm (.); URIC ACID 100 % (.); WEIGHT 144 mg (.)
== END | disposition home or self-care (01) ==
LOC: LAB 15:01 → LAB SHORT 15:01
PROVIDERS: Hospitalist
DX: N20.0 Calculus of kidney (principal)
CPT/HCPCS: 82365

== ENCOUNTER 2022-10-13 12:58 | Day surgery (SDC) | payer OTHER ==
[~2022-10-13] VITALS: Ht 157.5 cm; Wt 98.3 kg
[2022-10-13] MEDS ORDERED: SERT25 PO (15:06)
--- NOTE | 2022-10-13 16:16 | NUR ---
10/13/221615 Jose Guadalupe Oliveira PT HAD ELEVATED BLOOD PRESSURES IN STEP DOWN. SHE WAS ADVISED TO RETURN TO TAKING HER BLOOD [place] DIRECTED BY HER PCP WHEN SHE GETS HOME AND TO MONITOR BLOOD PRESSURES CLOSELY. SHE WAS ADVISED TO CONSULT PCP NEVIN IF BLOOD PRESSURE DOES NOT RETURN TO NORMAL.
== END 2022-10-13 16:09 | disposition home or self-care (01) ==
LOC: ORSCSDS 12:58
PROVIDERS: Ophthalmology
PROC: 08DJ3ZZ Extraction of Right Lens, Percutaneous Approach (ICD-10-PCS; principal; 2022-10-13 14:30)
DX: H25.11 Age-related nuclear cataract, right eye (principal); I10 Essential (primary) hypertension; I25.10 Atherosclerotic heart disease of native coronary artery without angina pectoris; K21.9 Gastro-esophageal reflux disease without esophagitis; E11.9 Type 2 diabetes mellitus without complications; J44.9 Chronic obstructive pulmonary disease, unspecified; E66.01 Morbid (severe) obesity due to excess calories; Z68.39 Body mass index [BMI] 39.0-39.9, adult; Z79.899 Other long term (current) drug therapy
CPT/HCPCS: 82947; J2001; J2250; J3010; J3301; J7040; V2632

== ENCOUNTER 2022-11-22 12:52 | Day surgery (SDC) | payer OTHER ==
[~2022-11-22] VITALS: Ht 157.5 cm; Wt 101.3 kg
[~2022-11-22 12:52] MED LIST changes: +SERT25 PO
--- NOTE | 2022-11-22 16:15 | NUR ---
11/22/22 8925 Jose Guadalupe Oliveira PT REPORTED HEADACHE IN THE BACK OF HER HEAD PRIOR TO D/C. HOWEVER, SHE STATED THIS IS A NORMAL FEELING FOR HER AFTER LYING DOWN FOR AN EXTENDED PERIOD. SHE WAS ADVISED TO CONTACT DR. MONTIEL, IF HEADACHE DID NOT IMPROVE.
== END 2022-11-22 14:45 | disposition home or self-care (01) ==
LOC: ORSCSDS 12:52
PROVIDERS: Ophthalmology
PROC: 08DK3ZZ Extraction of Left Lens, Percutaneous Approach (ICD-10-PCS; principal; 2022-11-22 14:00)
PROC: 08933ZZ Drainage of Left Anterior Chamber, Percutaneous Approach (ICD-10-PCS; principal; 2022-11-22 14:00)
DX: H25.12 Age-related nuclear cataract, left eye (principal); Z96.1 Presence of intraocular lens; E11.9 Type 2 diabetes mellitus without complications; I10 Essential (primary) hypertension; E78.5 Hyperlipidemia, unspecified; K21.9 Gastro-esophageal reflux disease without esophagitis; E66.01 Morbid (severe) obesity due to excess calories; Z68.41 Body mass index [BMI] 40.0-44.9, adult; Z79.84 Long term (current) use of oral hypoglycemic drugs; Z79.899 Other long term (current) drug therapy
CPT/HCPCS: 82947; J2250; J3010; J3301; V2632

== ENCOUNTER 2023-11-10 08:56 | Day surgery (SDC) | payer OTHER ==
[~2023-11-10] VITALS: Ht 154.9 cm; Wt 92.4 kg
[2023-11-10] MEDS ORDERED: WOMEN MULTIVIT1 EAC1 (09:21)
[2023-11-10] MEDS ORDERED: MERIBIN5 MG (09:21)
[2023-11-10 11:07] VITALS: BP 85/67
--- NOTE | 2023-11-10 11:09 | NUR ---
11/10/23 1109 Amberly Gill IV DC'D, PT TOLERATED WELL. GAUZE/COBAN IN PLACE
== END 2023-11-10 11:12 | disposition home or self-care (01) ==
LOC: ORSCSDS 08:56
PROVIDERS: Specialist
PROC: 0DB58ZX Excision of Esophagus, Via Natural or Artificial Opening Endoscopic, Diagnostic (ICD-10-PCS; principal; 2023-11-10 10:00)
PROC: 0DBL8ZX Excision of Transverse Colon, Via Natural or Artificial Opening Endoscopic, Diagnostic (ICD-10-PCS; principal; 2023-11-10 10:00)
PROC: 0DB68ZX Excision of Stomach, Via Natural or Artificial Opening Endoscopic, Diagnostic (ICD-10-PCS; principal; 2023-11-10 10:00)
DX: Z12.11 Encounter for screening for malignant neoplasm of colon (principal); Z86.010 Personal history of colon polyps; R10.13 Epigastric pain; D12.3 Benign neoplasm of transverse colon; K64.8 Other hemorrhoids; K44.9 Diaphragmatic hernia without obstruction or gangrene; K57.30 Diverticulosis of large intestine without perforation or abscess without bleeding; B96.81 Helicobacter pylori [H. pylori] as the cause of diseases classified elsewhere; E11.9 Type 2 diabetes mellitus without complications; K29.50 Unspecified chronic gastritis without bleeding; I10 Essential (primary) hypertension; E78.5 Hyperlipidemia, unspecified; Z80.0 Family history of malignant neoplasm of digestive organs; Z79.84 Long term (current) use of oral hypoglycemic drugs; E66.9 Obesity, unspecified; Z68.38 Body mass index [BMI] 38.0-38.9, adult; Z79.899 Other long term (current) drug therapy
CPT/HCPCS: 82947; 88305; 88342; J2704; J7120

== ENCOUNTER → 2024-05-14 | Outpatient (CLI) | payer OTHER ==
[~2024-05-14] MED LIST changes: +MERIBIN5 MG; +WOMEN MULTIVIT1 EAC1
[2024-05-14 18:20] LABS: BASOPHILS ABSOLUTE AUTO 0.06 K/mm3 (0.00-0.23); BASOPHILS PERCENT AUTO 1 % (0-2); EOSINOPHILS ABSOLUTE AUTO 0.28 K/mm3 (0.00-0.68); EOSINOPHILS PERCENT AUTO 3 % (0-6); Hematocrit 38.1 % (33.0-51.0); Hemoglobin 12.5 g/dL (11.5-16.0); IMMATURE GRAN ABSOLUTE AUTO 0.02 K/mm3 (0.00-0.10); IMMATURE GRAN PERCENT AUTO 0 % (0-1); LYMPHOCYTES ABSOLUTE AUTO 2.76 K/mm3 (0.84-5.20); LYMPHOCYTES PERCENT AUTO 30 % (21-46); MONOCYTES ABSOLUTE AUTO 0.65 K/mm3 (0.16-1.47); MONOCYTES PERCENT AUTO 7 % (4-13); Mean Corpuscular HGB 29.2 pg (26.0-34.0); Mean Corpuscular HGB Conc 32.8 g/dL (31.5-36.5); Mean Corpuscular Volume 89 fL (80-100); Mean Platelet Volume 9.7 fL (9.1-12.4); NEUTROPHILS ABSOLUTE AUTO 5.54 K/mm3 (1.96-9.15); NEUTROPHILS PERCENT AUTO 60 % (41-73); Platelet Count 239 K/mm3 (150-400); RDW Standard Deviation 44.8 fL (35.1-46.3); Red Blood Cell Count 4.28 M/mm3 (3.80-5.20); White Blood Cell Count 9.31 K/mm3 (4.00-11.30)
[2024-05-14 18:33] LABS: Albumin, Blood 3.9 g/dL (3.4-5.0); Bilirubin, Total 0.4 mg/dL (0.1-1.0); Bun/Creatinine Ratio 10.9 (12.0-20.0); Calcium, Blood 9.1 mg/dL (8.5-10.1); Creatinine, Blood 1.28 mg/dL (0.40-1.00); Globulin, Blood 3.8 g/dL (2.2-4.0); Potassium, Blood 3.8 mmol/L (3.5-5.5); Total Protein, Blood 7.7 g/dL (6.4-8.2)
== END | disposition home or self-care (01) ==
LOC: LAB SHORT 18:16 → LAB 18:16
PROVIDERS: Physician Assistant Medical
DX: R07.9 Chest pain, unspecified (principal)
CPT/HCPCS: 80053; 83690; 84484; 85025

== ENCOUNTER 2024-08-25 13:29 | Emergency (ER) | payer OTHER ==
[~2024-08-25] VITALS: Ht 157.5 cm; Wt 104.3 kg
[~2024-08-25 13:29] MED LIST changes: +METPRE4DP PO
[2024-08-25 14:24] LABS: Albumin, Blood 3.7 g/dL (3.4-5.0); Albumin/Globulin Ratio 1.1 (0.8-1.8); Bilirubin, Total 0.5 mg/dL (0.1-1.0); Bun/Creatinine Ratio 22.9 (12.0-20.0); Calcium, Blood 9.4 mg/dL (8.5-10.1); Creatinine, Blood 0.66 mg/dL (0.40-1.00); Globulin, Blood 3.5 g/dL (2.2-4.0); Potassium, Blood 4.3 mmol/L (3.5-5.5); Total Protein, Blood 7.2 g/dL (6.4-8.2)
[2024-08-25 14:36] LABS: BASOPHILS ABSOLUTE AUTO 0.04 K/mm3 (0.00-0.23); BASOPHILS PERCENT AUTO 1 % (0-2); EOSINOPHILS ABSOLUTE AUTO 0.28 K/mm3 (0.00-0.68); EOSINOPHILS PERCENT AUTO 4 % (0-6); Hematocrit 34.9 % (33.0-51.0); Hemoglobin 11.5 g/dL (11.5-16.0); IMMATURE GRAN ABSOLUTE AUTO 0.01 K/mm3 (0.00-0.10); IMMATURE GRAN PERCENT AUTO 0 % (0-1); LYMPHOCYTES ABSOLUTE AUTO 2.34 K/mm3 (0.84-5.20); LYMPHOCYTES PERCENT AUTO 36 % (21-46); MONOCYTES ABSOLUTE AUTO 0.43 K/mm3 (0.16-1.47); MONOCYTES PERCENT AUTO 7 % (4-13); Mean Corpuscular HGB 29.8 pg (26.0-34.0); Mean Corpuscular Volume 90 fL (80-100); Mean Platelet Volume 10.4 fL (9.1-12.4); NEUTROPHILS ABSOLUTE AUTO 3.38 K/mm3 (1.96-9.15); NEUTROPHILS PERCENT AUTO 52 % (41-73); Platelet Count 219 K/mm3 (150-400); RDW Coefficient Variation 14.1 % (11.7-14.2); RDW Standard Deviation 46.5 fL (35.1-46.3); Red Blood Cell Count 3.86 M/mm3 (3.80-5.20); White Blood Cell Count 6.48 K/mm3 (4.00-11.30)
[2024-08-25 18:16] VITALS: BP 167/48
[2024-08-25] MEDS ORDERED: LIDOCAINE1 EACH TOP (19:45)
== END 2024-08-25 19:58 | disposition home or self-care (01) ==
LOC: ER 13:29
PROVIDERS: Emergency Medicine
DX: R07.9 Chest pain, unspecified (principal); M62.838 Other muscle spasm; I10 Essential (primary) hypertension; G43.909 Migraine, unspecified, not intractable, without status migrainosus; Z79.84 Long term (current) use of oral hypoglycemic drugs; Z79.899 Other long term (current) drug therapy; Z88.5 Allergy status to narcotic agent; Z91.018 Allergy to other foods; Z88.8 Allergy status to other drugs, medicaments and biological substances
CPT/HCPCS: 71046; 80053; 83690; 84484; 85025; 93005; 93010; 99285-25

== ENCOUNTER 2024-09-04 09:31 | Day surgery (SDC) | payer OTHER ==
[~2024-09-04] VITALS: Ht 157.5 cm; Wt 102.0 kg
[~2024-09-04 09:31] MED LIST changes: +Crestor40 MG PO; +HYDROCODONE-AC1 EA19 PO; +LIDOCAINE1 EACH TOP; -ROSU10TA PO
[2024-09-04 10:20] VITALS: BP 143/63
[2024-09-04] MEDS ORDERED: ESCI10 PO (10:34)
[2024-09-04] MEDS ORDERED: GABA300 PO (10:35)
[2024-09-04] MEDS ORDERED: Isosorbide Mono30 MG PO (10:35)
[2024-09-04] MEDS ORDERED: LISI10 PO (10:36)
[2024-09-04] MEDS ORDERED: NITR.4SL SL (10:36)
[2024-09-04] MEDS ORDERED: OMEP20ER PO (10:37)
[2024-09-04] MEDS ORDERED: NS 250 ML IV ONE (10:48)
[2024-09-04] MEDS ORDERED: Verapamil HCL 2.5 MG/ML 2ML Injection ONE (10:48)
[2024-09-04] MEDS ORDERED: Heparin Sodium 1000 Units/ML 10ML MDV ONE (10:48)
[2024-09-04] MEDS ORDERED: NS 1,000 ML IV ONE ×2 (10:48→10:56)
[2024-09-04] MEDS ORDERED: Nitroglycerin 2 MG/20 ML BTL ONE (10:49)
[2024-09-04] MEDS ORDERED: FentaNYL Citrate 50 MCG/ML 2 ML Injection ONE ×2 (11:23→12:10)
[2024-09-04] MEDS ORDERED: Midazolam HCl 1MG / ML 2ML Vial ONE ×2 (11:23→12:10)
[2024-09-04 12:52] VITALS: BP 114/65
[2024-09-04 13:00] VITALS: BP 123/61
[2024-09-04 13:15] VITALS: BP 128/58
[2024-09-04] MEDS ORDERED: HYDCHL25 PO (13:22)
[2024-09-04 13:30] VITALS: BP 131/64
[2024-09-04 14:00] VITALS: BP 108/55
--- NOTE | 2024-09-04 14:10 | NUR ---
10CC AIR REMOVED FROM R WRIST TR BAND. NEG BLEEDING OR SWELLING.
--- NOTE | 2024-09-04 14:22 | NUR ---
PT AND FAMILY VERBALIZED UNDERSTANDING OF WRITTEN AND VERBAL D/C INST. IV REMOVED. PT WILL BE TAKEN OUT OF THE [facility] VIA W/C. R WRIST TR BAND REMOVED AND CLOTH DOT DRSG PLACED. R WRIST SPLINT REAPPLIED. NEG BLEEDING OR SWELLING.
[2024-09-06] MEDS ORDERED: METO10 PO (00:15)
== END 2024-09-04 14:30 | disposition home or self-care (01) ==
LOC: MHTC 09:31
DX: I25.118 Atherosclerotic heart disease of native coronary artery with other forms of angina pectoris (principal); R42 Dizziness and giddiness; I95.1 Orthostatic hypotension; E66.01 Morbid (severe) obesity due to excess calories; E11.9 Type 2 diabetes mellitus without complications; E03.9 Hypothyroidism, unspecified; E78.5 Hyperlipidemia, unspecified; I11.0 Hypertensive heart disease with heart failure; I50.30 Unspecified diastolic (congestive) heart failure; Z68.41 Body mass index [BMI] 40.0-44.9, adult; Z79.899 Other long term (current) drug therapy; Z88.5 Allergy status to narcotic agent; Z88.8 Allergy status to other drugs, medicaments and biological substances; Z91.018 Allergy to other foods
CPT/HCPCS: 76937; 93458; 99152; 99153; C1769; C1887; C1894; J1644; J2250; J3010; J7030; J7050; Q9967

== ENCOUNTER → 2025-06-25 | Outpatient (CLI) | payer OTHER ==
[~2025-06-25] MED LIST changes: +CEFD300 PO; +ESCI10 PO; +GABA300 PO; +HYDCHL25 PO; +IBU600 MG PO; +IBUP600 PO; +Isosorbide Mono30 MG PO; +LISI10 PO; +METO10 PO; +NITR.4SL SL; +OMEP20ER PO; +Pyridium100 MG PO
== END | disposition home or self-care (01) ==
LOC: LAB 17:14 → LAB SHORT 17:14
DX: N39.0 Urinary tract infection, site not specified (principal)
CPT/HCPCS: 87086

== ENCOUNTER 2025-06-27 21:18 | Emergency (ER) | payer OTHER ==
[~2025-06-27] VITALS: Ht 154.9 cm; Wt 90.7 kg
[~2025-06-27 21:18] MED LIST changes: -CEFD300 PO; -IBU600 MG PO; -IBUP600 PO; -Pyridium100 MG PO
[2025-06-27 21:31] VITALS: BP 208/135
[2025-06-27] MEDS ORDERED: FentaNYL Citrate 50 MCG/ML 2 ML Injection IV ONE (21:35)
[2025-06-27 21:59] LABS: BASOPHILS ABSOLUTE AUTO 0.05 K/mm3 (0.00-0.23); BASOPHILS PERCENT AUTO 1 % (0-2); EOSINOPHILS ABSOLUTE AUTO 0.16 K/mm3 (0.00-0.68); EOSINOPHILS PERCENT AUTO 2 % (0-6); Hematocrit 38.1 % (33.0-51.0); Hemoglobin 12.9 g/dL (11.5-16.0); IMMATURE GRAN ABSOLUTE AUTO 0.02 K/mm3 (0.00-0.10); IMMATURE GRAN PERCENT AUTO 0 % (0-1); LYMPHOCYTES ABSOLUTE AUTO 2.99 K/mm3 (0.84-5.20); LYMPHOCYTES PERCENT AUTO 31 % (21-46); MONOCYTES ABSOLUTE AUTO 0.63 K/mm3 (0.16-1.47); MONOCYTES PERCENT AUTO 7 % (4-13); Mean Corpuscular HGB Conc 33.9 g/dL (31.5-36.5); Mean Corpuscular Volume 87 fL (80-100); NEUTROPHILS ABSOLUTE AUTO 5.72 K/mm3 (1.96-9.15); NEUTROPHILS PERCENT AUTO 60 % (41-73); NRBC ABSOLUTE 0.00 K/mm3 (0.00-0.02); NRBC Auto 0.0 /100 WBC (0.0-0.2); Platelet Count 242 K/mm3 (150-400); RDW Coefficient Variation 13.2 % (11.7-14.2); RDW Standard Deviation 42.5 fL (35.1-46.3)
[2025-06-27 22:15] LABS: Source, Urine Clean Catch
[2025-06-27 22:17] LABS: Bilirubin, Urine Neg (Neg); Glucose Qualitative, Urine Neg (Neg); Ketones, Urine Neg (Neg); Leukocyte Esterase, Urine 1+ (Neg); Protein, Urine 1+ (Neg); Specific Gravity, Urine 1.015 (1.003-1.022); Urobilinogen, Urine NORM (Normal)
[2025-06-27 22:19] LABS: Alanine Aminotransfer (ALT/SGP 17.0 U/L (12-78); Albumin, Blood 3.8 g/dL (3.4-5.0); Albumin/Globulin Ratio 1.0 (0.8-1.8); Anion Gap 9.0 mmol/L (3-11); Aspartate Aminotrans (AST/SGOT 19.0 U/L (12-37); Bilirubin, Total 0.4 mg/dL (0.1-1.0); Blood Urea Nitrogen 14.0 mg/dL (8-24); CO2, Blood 25.0 mmol/L (21-32); Calcium, Blood 8.8 mg/dL (8.5-10.1); Chloride, Blood 104.0 mmol/L (98-108); Creatinine, Blood 0.71 mg/dL (0.40-1.00); Globulin, Blood 3.7 g/dL (2.2-4.0); Glucose, Blood 165.0 mg/dL (70-99); Potassium, Blood 3.8 mmol/L (3.5-5.5); Sodium, Blood 134.0 mmol/L (136-145); Total Protein, Blood 7.5 g/dL (6.4-8.2)
[2025-06-27 22:43] LABS: Color, Urine Pale Yellow (P-Yellow)
[2025-06-27 22:45] LABS: Red Blood Cells, Urine 0-2 /hpf (0-2)
[2025-06-28] MEDS ORDERED: Pyridium100 MG PO (00:54)
[2025-06-28] MEDS ORDERED: CEFD300 PO (00:54)
[2025-06-28] MEDS ORDERED: IBUP600 PO (00:54)
[2025-06-28] MEDS ORDERED: CefTRIAXone Sodium 1,000 MG in NS 100 ML IV ONE ×2 (00:55→01:20)
[2025-06-28] MEDS ORDERED: Ketorolac Tromethamine 15mg Vial IV ONE (00:55)
[2025-06-28] MEDS ORDERED: FentaNYL Citrate 50 MCG/ML 2 ML Injection IV ONE (01:10)
[2025-06-28] MEDS ORDERED: IBU600 MG PO (01:53)
== END 2025-06-28 02:10 | disposition home or self-care (01) ==
LOC: ER 21:18
PROVIDERS: Emergency Medicine
DX: N39.0 Urinary tract infection, site not specified (principal); R10.32 Left lower quadrant pain; I10 Essential (primary) hypertension; Z79.899 Other long term (current) drug therapy; Z79.82 Long term (current) use of aspirin; Z79.84 Long term (current) use of oral hypoglycemic drugs; Z88.5 Allergy status to narcotic agent; Z91.018 Allergy to other foods; Z88.1 Allergy status to other antibiotic agents; Z88.8 Allergy status to other drugs, medicaments and biological substances
CPT/HCPCS: 74176; 80053; 81001; 85025; 87086; 96374; 96375; 99284-25; A9270; J0696; J1885; J3010

== ENCOUNTER → 2025-09-19 | Outpatient (CLI) | payer OTHER ==
[~2025-09-19] MED LIST changes: +CEFD300 PO; +IBU600 MG PO; +IBUP600 PO; +Pyridium100 MG PO
[2025-09-19 17:42] LABS: Creatinine, Urine Random 138.0 mg/dL (27.00-270.00)
[2025-09-19 17:43] LABS: Microalb/Creat Ratio UR, Rand 10.87 mg/g (0.000-30.000); Microalbumin, Random Urine 15.0 mg/L (0.000-20.000)
== END ==
LOC: LAB 12:30 → LAB SHORT 12:30
PROVIDERS: Nurse Practitioner Family
DX: E11.9 Type 2 diabetes mellitus without complications (principal)
CPT/HCPCS: 82043; 82570